=== PATIENT | male | born 1940 | race Caucasian/White ===

== ENCOUNTER 2021-02-07 17:12 | Inpatient (IN) | payer OTHER, MEDICAID, SELFPAY ==
[~2021-02-07] VITALS: Ht 170.2 cm; Wt 73.0 kg
[2021-02-07 17:14] VITALS: BP_SYST 107
[2021-02-07 17:49] LABS: BASOPHILS % (AUTO) 0.6 % (0.0-2.0); EOSINOPHILS # (AUTO) 0.5 K/uL (0.0-0.4); EOSINOPHILS % (AUTO) 5.7 % (0.0-4.0); HEMATOCRIT 37.7 % (36-54); HEMOGLOBIN 12.9 g/dL (14.0-18.0); LYMPHOCYTES % (AUTO) 12.4 % (20.5-51.5); MEAN CORPUSCULAR HEMOGLOBIN 33 pg (27-31); MEAN CORPUSCULAR HGB CONC 34 % (32-36); MEAN CORPUSCULAR VOLUME 95 fL (79.0-98.0); MONOCYTES # (AUTO) 1.1 K/uL (0.0-1.0); MONOCYTES % (AUTO) 13.8 % (1.7-9.3); NEUTROPHILS # (AUTO) 5.6 K/uL (1.8-7.7); NEUTROPHILS % (AUTO) 67.5 % (40.0-70.0); PLATELET COUNT (AUTO) 346 K/uL (130-430); RED BLOOD CELL COUNT(AUTO) 3.95 MIL/uL (4.2-6.2); RED CELL DISTRIBUTION WIDTH 13.6 % (9.0-15.0); WHITE BLOOD COUNT (AUTO) 8.3 K/uL (4.8-10.8)
[2021-02-07 17:59] LABS: PROTHROMBIN TIME 10.5 SECS (9.5-12.5)
[2021-02-07 18:01] LABS: ANION GAP 5 (5-15); CALCIUM 9.2 mg/dL (8.4-11.0); CHLORIDE 97 mmol/L (98-107); CREATININE 0.81 mg/dL (0.55-1.30); GLUCOSE 122 mg/dL (70-99); SODIUM SERUM 132 mmol/L (136-145); UREA NITROGEN, BLOOD 12 mg/dL (8-21)
[2021-02-07 18:07] LABS: ALANINE AMINOTRANSFERASE 21 U/L (12-78); ALBUMIN 2.9 g/dL (3.4-4.8); ASPARTATE AMINOTRANSFERASE 13 U/L (10-37); TOTAL BILIRUBIN 0.2 mg/dL (0.0-1.0)
[2021-02-07] MEDS ORDERED: IOHEXOL 350 mgI/mL, 150 ML INFUS..BTL IV ONE (18:34)
[2021-02-07] MEDS ORDERED: APIX5TAB4 PO (21:54)
[2021-02-07] MEDS ORDERED: DILT180C67 PO (21:54)
[2021-02-07] MEDS ORDERED: METOPROLOL TARTRATE 5 MG/5 ML AMPUL IVP ONE (22:15)
[2021-02-07] MEDS ORDERED: INSULIN REGULAR, HUMAN 100 UNITS/ML, 10 ML VIAL (humuLIN R) SUBCUT PRN (22:15)
[2021-02-07] MEDS ORDERED: ALBUTEROL SULFATE 0.083% 2.5 MG/3 ML VIAL.NEB INH PRN (22:45)
[2021-02-08 00:48] VITALS: BP_SYST 117
[2021-02-08 06:19] LABS: BASOPHILS # (AUTO) 0.1 K/uL (0.0-0.2); BASOPHILS % (AUTO) 0.5 % (0.0-2.0); EOSINOPHILS # (AUTO) 0.4 K/uL (0.0-0.4); EOSINOPHILS % (AUTO) 3.5 % (0.0-4.0); HEMATOCRIT 39.5 % (36-54); HEMOGLOBIN 13.3 g/dL (14.0-18.0); LYMPHOCYTES % (AUTO) 9.9 % (20.5-51.5); MEAN CORPUSCULAR HEMOGLOBIN 32 pg (27-31); MEAN CORPUSCULAR HGB CONC 34 % (32-36); MEAN CORPUSCULAR VOLUME 96 fL (79.0-98.0); MONOCYTES # (AUTO) 1.2 K/uL (0.0-1.0); MONOCYTES % (AUTO) 12.1 % (1.7-9.3); NEUTROPHILS # (AUTO) 7.4 K/uL (1.8-7.7); PLATELET COUNT (AUTO) 398 K/uL (130-430); RED BLOOD CELL COUNT(AUTO) 4.12 MIL/uL (4.2-6.2); RED CELL DISTRIBUTION WIDTH 13.9 % (9.0-15.0)
[2021-02-08 06:53] LABS: ALANINE AMINOTRANSFERASE 20 U/L (12-78); ALBUMIN 2.9 g/dL (3.4-4.8); ANION GAP 5 (5-15); ASPARTATE AMINOTRANSFERASE 18 U/L (10-37); CALCIUM 9.4 mg/dL (8.4-11.0); CHLORIDE 98 mmol/L (98-107); CREATININE 0.85 mg/dL (0.55-1.30); GLUCOSE 94 mg/dL (70-99); POTASSIUM 4.3 mmol/L (3.5-5.1); SODIUM SERUM 136 mmol/L (136-145); UREA NITROGEN, BLOOD 10 mg/dL (8-21)
[2021-02-08 06:54] LABS: CHOLESTEROL 162 mg/dL (<200); HDL CHOLESTEROL 44 mg/dL (>45); LDL CHOLESTEROL 109 mg/dL (<100); TRIGLYCERIDES 71 mg/dL (30-150)
[2021-02-08 08:24] LABS: TOTAL BILIRUBIN 0.4 mg/dL (0.0-1.0)
[2021-02-08] MEDS: DILTIAZEM HCL 180 MG CAP.SR.24H PO SCH (09:25)
[2021-02-08] MEDS: MORPHINE 2 MG/ML INJ. SYRINGE IVP PRN ×2 (09:26→19:00)
[2021-02-08 11:00] VITALS: BP_SYST 123
[2021-02-08 20:00] VITALS: BP_SYST 113
[2021-02-08] MEDS: cefTRIAXone 1 GM IVPB PREMIX 50 ML IV SCH (20:36)
[2021-02-08] MEDS: AZITHROMYCIN 500 MG in NS 250 ML IV SCH (20:36)
[2021-02-09 00:05] VITALS: BP_SYST 117
[2021-02-09 08:00] VITALS: BP_SYST 110
[2021-02-09] MEDS: DILTIAZEM HCL 180 MG CAP.SR.24H PO SCH (09:49)
[2021-02-09] MEDS: HYDROcodone/ACETAMIN 5-325 MG TAB (NORCO/ VICODIN) PO PRN ×2 (11:42→22:20)
[2021-02-09 20:00] VITALS: BP_SYST 117
[2021-02-09] MEDS: cefTRIAXone 1 GM IVPB PREMIX 50 ML IV SCH (21:04)
[2021-02-09] MEDS: AZITHROMYCIN 500 MG in NS 250 ML IV SCH (21:05)
[2021-02-10 00:15] VITALS: BP_SYST 115
[2021-02-10 06:39] LABS: BASOPHILS # (AUTO) 0.1 K/uL (0.0-0.2); BASOPHILS % (AUTO) 0.8 % (0.0-2.0); EOSINOPHILS # (AUTO) 0.4 K/uL (0.0-0.4); EOSINOPHILS % (AUTO) 4.1 % (0.0-4.0); HEMATOCRIT 40.5 % (36-54); HEMOGLOBIN 13.8 g/dL (14.0-18.0); LYMPHOCYTES # (AUTO) 0.8 K/uL (1.0-5.5); LYMPHOCYTES % (AUTO) 8.4 % (20.5-51.5); MEAN CORPUSCULAR HEMOGLOBIN 33 pg (27-31); MEAN CORPUSCULAR HGB CONC 34 % (32-36); MEAN CORPUSCULAR VOLUME 95 fL (79.0-98.0); MONOCYTES % (AUTO) 10.9 % (1.7-9.3); NEUTROPHILS # (AUTO) 7.2 K/uL (1.8-7.7); NEUTROPHILS % (AUTO) 75.8 % (40.0-70.0); PLATELET COUNT (AUTO) 350 K/uL (130-430); RED BLOOD CELL COUNT(AUTO) 4.25 MIL/uL (4.2-6.2); RED CELL DISTRIBUTION WIDTH 13.4 % (9.0-15.0); WHITE BLOOD COUNT (AUTO) 9.5 K/uL (4.8-10.8)
[2021-02-10 07:08] LABS: ANION GAP 5 (5-15); C-REACTIVE PROTEIN QUANT 7.8 mg/dL (0-0.5); CALCIUM 8.9 mg/dL (8.4-11.0); CHLORIDE 96 mmol/L (98-107); CREATININE 0.72 mg/dL (0.55-1.30); GLUCOSE 94 mg/dL (70-99); POTASSIUM 3.7 mmol/L (3.5-5.1); SODIUM SERUM 130 mmol/L (136-145); UREA NITROGEN, BLOOD 14 mg/dL (8-21)
[2021-02-10 08:00] VITALS: BP_SYST 102
[2021-02-10 09:14] LABS: ERYTHROCYTE SEDIMENTATION RATE 46 MM/HR (0-15)
[2021-02-10] MEDS: DILTIAZEM HCL 180 MG CAP.SR.24H PO SCH (10:45)
[2021-02-10 12:00] VITALS: BP_SYST 99
[2021-02-10] MEDS ORDERED: DILTIAZEM HCL 25 MG/5 ML VIAL IVP ONE (12:00)
[2021-02-10 15:17] LABS: THYROID STIMULATING HORMONE 4.27 uIu/mL (0.36-3.74)
[2021-02-10 16:00] VITALS: BP_SYST 105
[2021-02-10 20:15] VITALS: BP_SYST 113
[2021-02-10] MEDS: cefTRIAXone 1 GM IVPB PREMIX 50 ML IV SCH (20:38)
[2021-02-10] MEDS: ACETAMINOPHEN 325 MG TABLET PO PRN (20:51)
[2021-02-10] MEDS: AZITHROMYCIN 500 MG in NS 250 ML IV SCH (23:29)
[2021-02-11 00:15] VITALS: BP_SYST 108
[2021-02-11 07:00] LABS: BASOPHILS # (AUTO) 0.1 K/uL (0.0-0.2); EOSINOPHILS # (AUTO) 0.5 K/uL (0.0-0.4); HEMATOCRIT 38.8 % (36-54); HEMOGLOBIN 13.4 g/dL (14.0-18.0); LYMPHOCYTES # (AUTO) 0.6 K/uL (1.0-5.5); MEAN CORPUSCULAR HEMOGLOBIN 33 pg (27-31); MEAN CORPUSCULAR HGB CONC 35 % (32-36); MEAN CORPUSCULAR VOLUME 95 fL (79.0-98.0); MONOCYTES # (AUTO) 0.9 K/uL (0.0-1.0); MONOCYTES % (AUTO) 11.9 % (1.7-9.3); NEUTROPHILS # (AUTO) 5.8 K/uL (1.8-7.7); NEUTROPHILS % (AUTO) 73.1 % (40.0-70.0); PLATELET COUNT (AUTO) 368 K/uL (130-430); RED BLOOD CELL COUNT(AUTO) 4.09 MIL/uL (4.2-6.2); RED CELL DISTRIBUTION WIDTH 13.5 % (9.0-15.0); WHITE BLOOD COUNT (AUTO) 7.9 K/uL (4.8-10.8)
[2021-02-11 08:00] VITALS: BP_SYST 122
[2021-02-11 08:08] LABS: ALANINE AMINOTRANSFERASE 23 U/L (12-78); ALBUMIN 2.3 g/dL (3.4-4.8); ANION GAP 8 (5-15); ASPARTATE AMINOTRANSFERASE 22 U/L (10-37); C-REACTIVE PROTEIN QUANT 6.9 mg/dL (0-0.5); CALCIUM 8.9 mg/dL (8.4-11.0); CHLORIDE 97 mmol/L (98-107); CREATININE 0.74 mg/dL (0.55-1.30); GLUCOSE 89 mg/dL (70-99); POTASSIUM 3.8 mmol/L (3.5-5.1); SODIUM SERUM 134 mmol/L (136-145); TOTAL BILIRUBIN 0.4 mg/dL (0.0-1.0); UREA NITROGEN, BLOOD 12 mg/dL (8-21)
[2021-02-11] MEDS: DILTIAZEM HCL 180 MG CAP.SR.24H PO SCH (08:36)
[2021-02-11] MEDS: ACETAMINOPHEN 325 MG TABLET PO PRN (08:40)
[2021-02-11 09:54] VITALS: BP_SYST 108
[2021-02-11 10:02] LABS: ERYTHROCYTE SEDIMENTATION RATE 54 MM/HR (0-15)
[2021-02-11 12:00] VITALS: BP_SYST 114
[2021-02-11 16:00] VITALS: BP_SYST 120
[2021-02-11] MEDS: HYDROcodone/ACETAMIN 5-325 MG TAB (NORCO/ VICODIN) PO PRN (20:46)
[2021-02-11 21:55] VITALS: BP_SYST 137
[2021-02-11] MEDS: AZITHROMYCIN 500 MG in NS 250 ML IV SCH (22:50)
[2021-02-11] MEDS: cefTRIAXone 1 GM IVPB PREMIX 50 ML IV SCH (22:50)
[2021-02-12 01:22] VITALS: BP_SYST 107
[2021-02-12 08:00] VITALS: BP_SYST 111
[2021-02-12] MEDS: DILTIAZEM HCL 180 MG CAP.SR.24H PO SCH (09:12)
[2021-02-12 11:54] LABS: SOURCE/TYPE ,BODY FLUID PLEURAL
[2021-02-12 11:55] LABS: BF APPEARANCE UNSPUN HAZY (CLEAR); BODY FLUID COLOR YELLOW (LT YELLOW); BODY FLUID SOURCE/ TYPE PLEURAL
[2021-02-12 11:56] LABS: BODY FLUID TOTAL VOLUME 1250 mL; LYMPHOCYTES, BODY FLUID 70 %; MONOCYTES,BODY FLUID 29 %; NEUTROPHIL, BODY FLUID 1 %; RBC, BODY FLUID 20 /uL; WBC, BODY FLUID 320 /uL
[2021-02-12 12:04] VITALS: BP_SYST 106
[2021-02-12 16:02] VITALS: BP_SYST 102
[2021-02-12] MEDS: HYDROcodone/ACETAMIN 5-325 MG TAB (NORCO/ VICODIN) PO PRN (18:03)
[2021-02-12 18:09] LABS: BODY FLUID GLUCOSE 117 mg/dL
[2021-02-12 18:17] LABS: BODY FLUID TOTAL PROTEIN 4.3 g/dL
[2021-02-12 20:00] VITALS: BP_SYST 107
[2021-02-12] MEDS: AZITHROMYCIN 500 MG in NS 250 ML IV SCH (23:39)
[2021-02-12] MEDS: cefTRIAXone 1 GM IVPB PREMIX 50 ML IV SCH (23:39)
[2021-02-13 00:46] VITALS: BP_SYST 113
[2021-02-13 08:10] VITALS: BP_SYST 117
[2021-02-13] MEDS: DILTIAZEM HCL 180 MG CAP.SR.24H PO SCH (09:19)
[2021-02-13 12:30] VITALS: BP_SYST 107
[2021-02-13 16:00] VITALS: BP_SYST 111
[2021-02-13] MEDS: ACETAMINOPHEN 325 MG TABLET PO PRN (17:40)
[2021-02-13 20:20] VITALS: BP_SYST 122
[2021-02-13] MEDS: cefTRIAXone 1 GM IVPB PREMIX 50 ML IV SCH (20:28)
[2021-02-13] MEDS: HYDROcodone/ACETAMIN 5-325 MG TAB (NORCO/ VICODIN) PO PRN (20:29)
[2021-02-14 00:15] VITALS: BP_SYST 122
[2021-02-14 07:38] VITALS: BP_SYST 116
[2021-02-14] MEDS: DILTIAZEM HCL 180 MG CAP.SR.24H PO SCH (08:19)
[2021-02-14 09:19] VITALS: BP_SYST 116
== END 2021-02-14 14:40 | disposition home or self-care (01) | DRG 180 ==
LOC: SED 17:12 → STU 22:11 → SMU 02-08 09:38
PROVIDERS: ADMIT Internal Medicine Hospice and Palliative Medicine; ATTEND Internal Medicine Hospice and Palliative Medicine
PROC: 0W993ZZ Drainage of Right Pleural Cavity, Percutaneous Approach (ICD-10-PCS; principal; 2021-02-08)
PROC: 0W993ZZ Drainage of Right Pleural Cavity, Percutaneous Approach (ICD-10-PCS; 2021-02-11)
DX: C34.90 Malignant neoplasm of unspecified part of unspecified bronchus or lung (principal); J18.9 Pneumonia, unspecified organism; J96.01 Acute respiratory failure with hypoxia; E46 Unspecified protein-calorie malnutrition; E87.1 Hypo-osmolality and hyponatremia; J91.0 Malignant pleural effusion; J44.0 Chronic obstructive pulmonary disease with (acute) lower respiratory infection; R65.10 Systemic inflammatory response syndrome (SIRS) of non-infectious origin without acute organ dysfunction; D64.9 Anemia, unspecified; Z20.822 Contact with and (suspected) exposure to COVID-19; R73.9 Hyperglycemia, unspecified; F17.200 Nicotine dependence, unspecified, uncomplicated; I48.91 Unspecified atrial fibrillation; R74.8 Abnormal levels of other serum enzymes; I11.9 Hypertensive heart disease without heart failure; E78.5 Hyperlipidemia, unspecified; Z90.49 Acquired absence of other specified parts of digestive tract; Z92.21 Personal history of antineoplastic chemotherapy; Z79.899 Other long term (current) drug therapy; Z79.01 Long term (current) use of anticoagulants; Z68.25 Body mass index [BMI] 25.0-25.9, adult
CPT/HCPCS: 32555; 36415; 70551; 71045; 71275; 76376; 80048; 80053; 80061; 82042; 82947; 83036; 83880; 84157; 84439; 84443; 84484; 85025; 85379; 85610-TC; 85651-TC; 85730-TC; 86140; 87070-TC; 88108; 88305; 89051-TC; 89060-TC; 93005; 94640; 96365; 96375; 99285; G0378; J0456; J0696; J1956; J2270; J3490; J7050; J7613; Q9967